=== PATIENT | male | born 2005 | race Hispanic/Latino ===

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

== ENCOUNTER 2024-01-03 12:04 | Emergency (ER) | payer OTHER, MEDICAID, SELFPAY ==
[2024-01-03 12:05] VITALS: BP 109/53; PULSE 100; RESP 22; TEMP 37; O2SAT 98; BMI 21.2
--- NOTE | 2024-01-03 12:11 | DI.RAD.S_ITS ---
PROCEDURE: XR RIBS RT MIN 3V W CXR 1V INDICATIONS: fall/pain TECHNIQUE: 2 views of the ribs were acquired, along with a single view chest. COMPARISON: None. FINDINGS: Surgical changes and devices: None. Bones and chest wall: No fractures or dislocations. No suspicious bony lesions. Overlying soft tissues appear unremarkable. Lungs and pleura: No pleural effusions or pneumothorax. Lungs appear clear. Mediastinum: Mediastinal contours appear normal. Heart size is normal. IMPRESSION: No displaced rib fracture or pneumothorax. Dictated by: Ned Philippe M.D. on 01/03/2024 at 13:10 Approved by: Ned Philippe M.D. on 01/03/2024 at 13:10
--- NOTE | 2024-01-03 13:25 | ED.FALL ---
HPI - Fall <Denice Rogers PA-C - Last Filed: 01/03/24 14:36> General Chief Complaint: Fall Stated Complaint: Fell Last night Time Seen by Provider: 01/03/24 13:24 Source: patient Mode of arrival: Ambulatory History of Present Illness HPI Narrative: This is a 18-year-old male presenting with his father with concern for right upper back/scapular pain after to injuries in the past week. Patient has a history of seizures and had stopped taking his seizure medication after recently becoming a father. He had a seizure on Sunday for the 1st time in 4 years and fell from standing when this occurred landing on his right scapula/upper back. After that time he had some pain in this area and tightness in the muscles and some occasional sharp shooting pains into his ribs. He did not take anything for it as he was tolerating it okay then last night he was helping a friend to jump-start a car and as he was doing so he slid from the seat hitting the frame of the car at the same location over his right scapula. Since that time he has had more pain and sharp intense pain specifically with taking a deep breath. 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 He took 2 ibuprofen last night but otherwise has not treated his pain with anything. Denies dizziness lightheadedness shortness of breath chest pain, numbness or tingling of extremities, or any other symptoms or injuries he states he has restarted taking his seizure medications and has not had a seizure since. Related Data Home Medications Medication Instructions Recorded Confirmed valproic acid (as sodium salt) 250 10/08/19 mg/5 mL oral solution divalproex 500 mg tablet,delayed See Rx Instructions .Route .COMPLEX 03/22/22 03/22/22 release midazolam 5 mg/mL injection 10 mg intranasal PRN PRN Seizure 03/22/22 03/22/22 solution Activity Previous Rx's Medication Instructions Recorded baclofen 10 mg tablet 10 mg PO TID 10 days #30 tabs 01/03/24 lidocaine 5 % topical patch 1 patch topical DAILY 15 days #15 01/03/24 ea Allergies Allergy/AdvReac Type Severity Reaction Status Date / Time No Known Drug Allergies Allergy Verified 12/23/18 21:56 Review of Systems <Denice Rogers PA-C - Last Filed: 01/03/24 14:36> Review of Systems Narrative: See HPI Patient History <Denice Rogers PA-C - Last Filed: 01/03/24 14:36> Medical History (Updated 01/03/24 @ 14:34 by Denice Rogers PA-C) No active medical problems Surgical History No pertinent past surgical history Social History Smoking Status: Current every day smoker substance use type: does not use Smoking Status: Current every day smoker alcohol intake frequency: 0-2 drinks per day Substance Use Type: marijuana Exam <Denice Rogers PA-C - Last Filed: 01/03/24 14:36> Narrative Exam Narrative: GENERAL: [18] year old patient appears stated age. Well-developed patient, in mild distress. HEAD: Atraumatic. Normocephalic. EYES: Pupils equal round and reactive. Extraocular motions intact. No scleral icterus. No injection or drainage. ENT: Nose without bleeding, purulent drainage. Airway patent. NECK: Trachea midline. Non tender CARDIOVASCULAR: Regular rate and rhythm without murmurs, gallops, or rubs. RESPIRATORY: Clear to auscultation. Breath sounds equal bilaterally. No wheezes, rales, or rhonchi. GASTROINTESTINAL: Abdomen soft, non-tender, nondistended. EXTREMITIES: No edema or joint tenderness. BACK: There is significant tenderness with visible swelling/inflammation/muscle spasming over the right rhomboids, trapezius and inferior to the right scapula. There is tenderness with palpation over the ribs just inferior to the scapula and laterally to the mid axillary line on the right. There is no CVA tenderness or other tenderness of the back. Nontender without deformity or crepitance. No flank tenderness. NEURO: AOx3. SKIN: No rash or erythema of visible areas Initial Vital Signs Initial Vital Signs: Vital Signs Temperature 98.6 F 01/03/24 12:05 Pulse Rate 100 H 01/03/24 12:05 Respiratory Rate 22 01/03/24 12:05 Blood Pressure 109/53 L 01/03/24 12:05 Pulse Oximetry 98 01/03/24 12:05 Oxygen Delivery Method Room Air 01/03/24 12:05 <Clarita Monet DO - Last Filed: 01/04/24 08:53> Initial Vital Signs Initial Vital Signs: Vital Signs Temperature 98.6 F 01/03/24 12:05 Pulse Rate 100 H 01/03/24 12:05 Respiratory Rate 22 01/03/24 12:05 Blood Pressure 109/53 L 01/03/24 12:05 Pulse Oximetry 98 01/03/24 12:05 Oxygen Delivery Method Room Air 01/03/24 12:05 Course <Denice Rogers PA-C - Last Filed: 01/03/24 14:36> Course Course Narrative: Did discuss this patient with attending physician specifically because urine was noted to be positive for 1+ blood. However patient has no flank tenderness/pain over the kidneys and mechanism was not significant. We discussed whether or not to pursue advanced imaging and will hold off at this time. We will give the patient close return precautions. 1418 Orders Ordered: ED Orders 01/03/24 12:11 XR ribs RT min 3V w CXR1V Stat 01/03/24 13:55 Urine Culture Stat Urine Microscopic Stat Vital Signs Vital signs: Vital Signs - 8 hr 01/03/24 12:05 Temperature 98.6 F Pulse Rate 100 H Respiratory Rate 22 Blood Pressure 109/53 L Pulse Oximetry 98 Oxygen Delivery Method Room Air <Clarita Monet DO - Last Filed: 01/04/24 08:53> Orders Ordered: ED Orders 01/03/24 12:11 XR ribs RT min 3V w CXR1V Stat 01/03/24 13:55 Urine Culture Stat Urine Microscopic Stat Vital Signs Vital signs: Vital Signs - 8 hr 01/03/24 12:05 Temperature 98.6 F Pulse Rate 100 H Respiratory Rate 22 Blood Pressure 109/53 L Pulse Oximetry 98 Oxygen Delivery Method Room Air MDM - Fall <Denice Rogers PA-C - Last Filed: 01/03/24 14:36> Differential Diagnosis Differential diagnosis: Likely other (Muscle spasm, back strain) Lab Data Attestation: I reviewed the patient's lab results. Labs: Lab Results 01/03/24 Range/Units 13:55 Urine RBC 1-5/hpf (0-5/HPF) Urine WBC None seen (0-5/HPF) Ur Squamous Epith Cells None seen (0-5/HPF) Urine Bacteria None seen (None) Ur Culture Indicated? Cult not indicated Vol Urine Centrifuged 10ml (spun) Urine Dip Bedside Urine Glucose Negative Bedside Urine Bilirubin - Negative Bedside Urine Ketone ++ 40 Urine Specific [place] 1.020 Bedside Urine Occult Blood + Bedside Urine pH 6.0 Bedside Urine Protein +/- 15 Bedside Urine Urobilinogen +/- 1mg Bedside Urine Nitrite - Negative Bedside Urine Leukocytes - Negative Esterase Imaging Data Chest x-ray: My Impression: Agree with Radiology interpretation Radiologist's Impression: [address] [address] XRay Report Signed Patient: Jacky Abraham MR#: [id number] : 2005 Acct:[id number] Age/Sex: 18 / M Date of Service: 01/03/24 Loc: ED Accession Number: [id number] Procedure: XR ribs RT min 3V w CXR1V Ordering Provider: Clarita Monet D.O. PROCEDURE: XR RIBS RT MIN 3V W CXR 1V INDICATIONS: fall/pain TECHNIQUE: 2 views of the ribs were acquired, along with a single view chest. COMPARISON: None. FINDINGS: Surgical changes and devices: None. Bones and chest wall: No fractures or dislocations. No suspicious bony lesions. Overlying soft tissues appear unremarkable. Lungs and pleura: No pleural effusions or pneumothorax. Lungs appear clear. Mediastinum: Mediastinal contours appear normal. Heart size is normal. IMPRESSION: No displaced rib fracture or pneumothorax. Dictated by: Ned Philippe M.D. on 01/03/2024 at 13:10 Approved by: Ned Philippe M.D. on 01/03/2024 at 13:10 [facility] Narrative Medical decision making narrative: This is a generally well-appearing 18-year-old male presenting with his father with concern for right scapular pain and upper thoracic pain on the right since he had a seizure 5 days ago and then re-injured the same location last night when helping a friend jump start his car. Mechanism of injury in both occasions is low, patient has had no other concerning symptoms for internal bleeding he has no generalized body aches suggestive of rhabdo. X-ray rib series is obtained with no evidence of displaced fracture or other bony abnormality noted. He has significant muscle swelling and tenderness over the area of pain in the right thorax and scapular region. Urine does returned positive for protein and 1+ blood discussed this with the attending physician and based on exam and history will give the patient careful return precautions but advanced imaging is not pursued today in the ED. prescription for muscle relaxer, recommend Tylenol ibuprofen, heat and ice, prescription for lidocaine. Return precautions provided, follow-up plan discussed, all questions answered. <Clarita Monet DO - Last Filed: 01/04/24 08:53> Lab Data Labs: Lab Results 01/03/24 Range/Units 13:55 Urine RBC 1-5/hpf (0-5/HPF) Urine WBC None seen (0-5/HPF) Ur Squamous Epith Cells None seen (0-5/HPF) Urine Bacteria None seen (None) Ur Culture Indicated? Cult not indicated Vol Urine Centrifuged 10ml (spun) Urine Dip Bedside Urine Glucose Negative Bedside Urine Bilirubin - Negative Bedside Urine Ketone ++ 40 Urine Specific [place] 1.020 Bedside Urine Occult Blood + Bedside Urine pH 6.0 Bedside Urine Protein +/- 15 Bedside Urine Urobilinogen +/- 1mg Bedside Urine Nitrite - Negative Bedside Urine Leukocytes - Negative Esterase Discharge Plan Departure Patient Disposition: Home Clinical Impression: Muscle spasm Intercostal muscle strain Qualifiers: Encounter type: initial encounter Qualified Code(s): S29.011A - Strain of muscle and tendon of front wall of thorax, initial encounter Activity Restrictions/Additional Instructions: *You have been diagnosed with [intercostal muscle strain, muscle spasms] *What to do: *Please continue to take your regular medications as directed. [ 2] New medication prescriptions sent to your pharmacy: [Baclofen (muscle relaxer for), lidocaine] [ ] New medication written as a paper prescription [ ] No new medications given *Please follow up with your primary care provider in 2-3 days, call for an appointment. Let them know you were seen in the Emergency Department and that we ask that you be seen in follow up. We will electronically transmit a record of today's note if your PCP is in our system. He injured your back in the area of your shoulder blade when he had a seizure few days ago and again last night. X-rays of your ribs did not show any obvious fractures or abnormalities. You definitely have some significant tenderness and some swelling at the area of your back on the right side near her shoulder blade. Consistent with a sprain/strain and muscle spasming. You should continue to rest drink plenty of fluids you can try heat and ice, Tylenol and ibuprofen, I have prescribed lidocaine patches for pain as well as baclofen for muscle relaxer. You did have some small amount of blood seen on your urine today on your urine sample; based on how your injuries occurred and wear your pain is this is unlikely to be related to your kidney and we have elected not to pursue any advanced imaging today but it is important that if you develop new or worsening symptoms such as visibly bloody urine, dizziness lightheadedness shortness of breath that is new, abdominal pain or other symptoms of concern that you seek re-evaluation. Please continue to take your medications as prescribed including your seizure medication. Follow up closely with your primary care provider. I hope you feel better soon. *If you do not have a primary care provider please contact the Resource line at [phone]. They will ask some questions about your medical history and help get you set up with a doctor in the community. *Return to Emergency Department if you should have any new, worsening or concerning symptoms, such as [fever greater than 101 F, shaking chills, worsening pain, persistent vomiting or other bothersome symptoms] Prescriptions: New baclofen 10 mg tablet 10 mg PO TID 10 Days Qty: 30 0RF lidocaine 5 % adhesive patch,medicated 1 patch topical DAILY 15 Days Qty: 15 0RF Rx Instructions: leave on most painful area for up to 12 hrs No Action midazolam 5 mg/mL Solution 10 mg intranasal PRN PRN (Reason: Seizure Activity) divalproex 500 mg tablet,delayed release (DR/EC) See Rx Instructions .ROUTE .COMPLEX Patient Comments: TAKE 1 TABLET BY MOUTH IN THE MORNING AND 2 TABLETS IN THE EVENING. DO NOT CRUSH, CHEW OR SPLIT. Rx Instructions: Take 500mg in AM and 1000mg in PM valproic acid (as sodium salt) 250 mg/5 mL solution Referrals: Bhargav Gibbons MD [Primary Care Provider] - Stand Alone Forms: Patient Portal/API ED Sign-out <Clarita Monet DO - Last Filed: 01/04/24 08:53> Cosign ED Attending Carterature Attestation: I was available for consultation.
[2024-01-03 14:19] LABS: Urine Volume 10mL (spun)
[2024-01-03 14:21] LABS: Bacteria Urine None Seen; Culture Indicated Urine Cult Not Indicated; RBC Urine 1-5/HPF (0-5/HPF); Squamous Epithelial Cell Urine None Seen (0-5/HPF); WBC Urine None Seen (0-5/HPF)
[2024-01-03 14:43] VITALS: BP 107/53; PULSE 95; RESP 20; O2SAT 98
== END 2024-01-03 14:43 | disposition home or self-care (01) ==
PROVIDERS: Emergency Provider Student in an Organized Health Care Education/Training Program; PCP Pediatrics
DX: M62.838 Other muscle spasm (principal); S29.011A Strain of muscle and tendon of front wall of thorax, initial encounter; W18.39XA Other fall on same level, initial encounter
CPT/HCPCS: 71101; 81003; 81015; 87086; 99282; 99284